=== PATIENT | male | born 1980 | race Caucasian/White ===

== ENCOUNTER 2019-03-08 10:59 | Emergency (ER) | payer MEDICAID ==
[~2019-03-08] VITALS: Ht 170.2 cm; Wt 99.3 kg
[2019-03-08] MEDS ORDERED: LIDOCAINE 1%-EPI 1:100,000 20 ML VIAL ONE (11:10)
[2019-03-08] MEDS ORDERED: TDAP [DIPH/PERTUSSIS/TET] 0.5 ML VIAL IM ONE ×2 (11:15→11:30)
[2019-03-08] MEDS ORDERED: LIDOCAINE 1%-EPI 1:100,000 20 ML VIAL TP ONE (11:30)
--- NOTE | 2019-03-08 11:44 | NUR ---
Patient discharged to home in stable condition. Written and verbal after care instructions given. Patient verbalizes understanding of instruction.
[2019-03-08 11:45] VITALS: BP 141/86
== END 2019-03-08 11:46 | disposition home or self-care (01) ==
LOC: ER 11:07
DX: L02.212 Cutaneous abscess of back [any part, except buttock and flank] (principal)
CPT/HCPCS: 10060; 90471; 90715; 99283; A6407; J3490

== ENCOUNTER 2019-09-01 13:05 | Emergency (ER) | payer MEDICAID ==
[~2019-09-01] VITALS: Ht 175.3 cm; Wt 97.5 kg
--- NOTE | 2019-09-01 13:27 | NUR ---
ble pain worst the past 2 days. to ER bed 10, hooked to monitor, awaiting md corbin. no distress. kept safe and comfortable.
--- NOTE | 2019-09-01 13:38 | NUR ---
Dr De Anda at bedside
[2019-09-01] MEDS ORDERED: HYDROCODONE/APAP 5/325MG 1 EACH TABLET ONE (14:14)
--- NOTE | 2019-09-01 14:21 | NUR ---
Patient discharged to home in stable condition. Written and verbal after care instructions given. Patient verbalizes understanding of instruction. Instructed not to drive. Per patient, will wait in waiting room for .
[2019-09-01 14:24] VITALS: BP 121/82
[2019-09-01] MEDS ORDERED: HYDROCODONE/APAP 5/325MG 1 EACH TABLET PO ONE (14:30)
== END 2019-09-01 14:25 | disposition home or self-care (01) ==
LOC: ER 13:07
DX: I83.93 Asymptomatic varicose veins of bilateral lower extremities (principal); R25.2 Cramp and spasm